=== PATIENT | female | born 1950 | race Caucasian/White ===

== ENCOUNTER 2016-03-17 13:33 | Inpatient (IN) | payer MEDICARE, OTHER ==
[~2016-03-17] VITALS: Ht 167.6 cm; Wt 74.3 kg
--- NOTE | ~2016-03-17 | INT ---
PATIENT'S NAME: AMY SULTANA [facility] AGE: 65 Y [address] 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 HISTORY OF PRESENT ILLNESS: Amy is a 65-year-old female who started her radiation therapy today. She is at a dose of 300 cGy out of 3000 cGy. We plan to treat the patient for 2 weeks, give her a short break and then bring her back for possible further treatment. The patient is using a PEG tube for all of her nutritional needs. She is unable to swallow any food. The patient has her head elevated to sleep. She states she recently had her oxygen discontinued which pleased her. The patient had an anxiety attack prior to coming over for her first treatment. Nursing staff had given her Ativan prior to her trip to the Cancer Center today. Ramy Galeano APRN, acting as Dr. Landers's scribe for the physical examination, impression, and plan. PHYSICAL EXAMINATION: VITAL SIGNS: Temperature 97.6, pulse 98, respiratory rate 18, blood pressure 117/78, oxygen saturation 95%. Pain was 2/10. Weight was 71.3 kg. Height 65 inches. LUNGS: Clear anteriorly and posteriorly. No wheezes, rales, or rhonchi. Oral cavity does not show any mycoses. Tongue protrudes in the midline. The patient has radiation portal markings on her anterior chest. No redness noted. NEUROLOGIC: The patient is alert and oriented x3. She has tremors to both hands. ABDOMEN: The patient has a PEG tube in place covered with a dressing and tape. Bowel sounds are active. No masses. A 65-year-old female with non-small cell lung cancer. We will continue with treatment. PATIENT'S NAME: AMY SULTANA [facility] AGE: 65 Y [address] ROOM: [place] [id number] LOCATION: [facility] ADMIT DATE: 03/17/2016 Oncology Report DISCHARGE DATE: FAMILY PHYSICIAN: Jolynn Vaughn MD ATTENDING PHYSICIAN: JOLANTA CHAUDHARY RAMY GALEANO APRN FOR ROSA M LANDERS MD, PHD LAD/modl /[id number] CC: MD Jolynn Carrera MD Cynthia M Lewis, MD Atam Mehdiratta, MD d: 03/24/16 1009 t: 04/08/16 1112, INTERVAL NOTE
--- NOTE | ~2016-03-17 | DS ---
PATIENT'S NAME: ALEXIS SULTANA [facility] AGE: 65 Y [address] ROOM: [address] [address] LOCATION: [facility] ADMIT DATE: 02/27/2016 Discharge Summary DISCHARGE DATE: 03/17/2016 FAMILY PHYSICIAN: Jolynn Vaughn MD ATTENDING PHYSICIAN: Herminia Pride FINAL DIAGNOSES: 1. Stage IV lung cancer status post treatment with atezolizumab. 2. Esophageal stricture. 3. Chronic respiratory failure. 4. Moderate protein-calorie malnutrition. 5. Intractable nausea and vomiting. 6. Acute on chronic back pain. 7. Hypothyroidism. 8. Chronic obstructive pulmonary disease. 9. Hypokalemia. 10. Right arm deep venous thrombosis. 11. Generalized anxiety. 12. Chronic constipation. PROCEDURES: 1. She had ad an EGD with Dr. Yuan on March 02. Right PICC line with Dr. Childs on March 03. 2. G-tube placement with Dr. Reeder on March 09, 2016. Please see the history and physical dictated by Dr. Pride for details of admission. In short, patient was admitted with intractable nausea, vomiting, and pain. LABORATORY DATA: On admission, sodium 138, got as low as 134, discharge 136; potassium on admission was 3.3, discharge 3.8, chloride on admission was 100 and on discharge 98. Bicarb on admission was 24 and on discharge 31. Alkaline phosphatase on admission was 82. AST is 31, ALT is 25. Cardiac enzymes on admission were normal. On admission, white blood cell count 7.1, most recent prior to discharge was 7. Hemoglobin on admission is 39, most prior to discharge was 11.6, platelet count on admission was 324 and on discharge 215. Procalcitonin on admission was less than 0.05. Urinalysis on admission did not show any evidence of infection. MICROBIOLOGY DATA: From the hospital, stool culture was negative. RADIOLOGIC STUDIES: X-ray of the abdomen on admission did not show any free air. It showed air containing loops of small bowel. CT scan of the head on admission did not show any significant abnormalities. Modified barium swallow on February 29, 2016, showed that there was good oral control, but there was significant narrowing at the midesophagus. MRI of the brain on March 01, 2016, did not show any acute changes. Bone scan on March 02, 2016, showed a normal bone scan without bony METS. PATIENT'S NAME: ALEXIS SULTANA [facility] AGE: 65 Y [address] ROOM: [id number] [place], [place] [address] LOCATION: [facility] ADMIT DATE: 02/27/2016 Discharge Summary DISCHARGE DATE: 03/17/2016 FAMILY PHYSICIAN: Jolynn Vaughn MD ATTENDING PHYSICIAN: Herminia Pride HOSPITAL COURSE: The patient was admitted with a diagnosis of intractable nausea, vomiting, pain, and constipation. It was known that she had stage IV lung disease. She was admitted for IV Dilaudid INSPECTOR PAWNSHOP DETAIL. She was continued on her home medications. Because of the nausea and vomiting, an NG was placed and put through low intermittent suction. She was given Mag citrate per the NG to try and stimulate a bowel movement. She continued to have significant dysphagia and a modified barium swallow was obtained which did in fact show that there was evidence of an esophageal stricture. She was seen by Dr. Luevano and given a dose of dexamethasone to see if that would help with the pain. Her electrolytes were continued to be watched and replaced as necessary. GI was consulted to see her because of the abnormality on her barium swallow. An MRI and bone scan were done to evaluate for further METS. Dr. Yuan did see her in consultation and did feel that she needed an endoscopy. That was set up for the next hospital day. The EGD did show a tight stricture. It was an extrinsic compression. Discussion was to whether she would need an esophageal stent with a PEG or G-tube placement. She continued to have significant back pain as she was not able to take anything. An attempt was made to place the PICC line but could not be placed, so Interventional Radiology did place that. Once the PICC line was placed, she did receive TPN. Palliative Care was asked to see the patient. Nutrition did help with her TPN formulation. There was a discussion with her in terms of using an immunotherapy as salvage for her, and she was contemplating that. The plan is that GI did speak with her and really she did not want to have an esophageal stent placed due to the high risk. As noted on March 07, 2016, she had significant edema in her arm. At that time, a Doppler was obtained and did show that she had the clot around the PICC line. I spoke with Dr. Son Childs who placed the PICC line, and he stated at this time, he would recommend just anticoagulation. She was placed on a heparin drip for this. The decision was made that Interventional Radiology would place a G-tube and she was continued on the heparin drip until then. It was also decided that she would start the atezolizumab therapy. She received that on March. Once the G-tube was placed, and it was safe to use, we did take her off the TPN and start tube feeds. She did have problems with significant constipation which we did work with. She did get the chemotherapy and tolerated it without any difficulty. The heparin was stopped prior to the procedure, and when it was safe to resume anticoagulation, she was started on Eliquis 5 mg twice daily. The tube feeds were started, and she did have some difficulty with nausea when they were first at goal rate. At that time, we did give her aggressive stimulation, and she did have a bowel movement. We also worked to convert her from the INSPECTOR PAWNSHOP DETAIL to a fentanyl patch with Dilaudid for the tube for breakthrough. Dr. Ronna Jeter did see her and felt that she might benefit from radiation as palliation to the stricture. She did agree to do that. Dr. Kaminski did see her, and she underwent a simulation for that on March 15, 2016. A bed did become available for her on the Transitional Care Unit, and she was PATIENT'S NAME: ALEXIS SULTANA [facility] AGE: 65 Y [address] ROOM: [address] [address] LOCATION: [facility] ADMIT DATE: 02/27/2016 Discharge Summary DISCHARGE DATE: 03/17/2016 FAMILY PHYSICIAN: Jolynn Vaughn MD ATTENDING PHYSICIAN: Herminia Pride transferred there on March 17. DISCHARGE INSTRUCTIONS: She is to get tube feeds at Jevity 1.5 at 55 mL an hour with water flushes of 150 mL every 8 hours. Weightbearing as tolerated. PT/OT and speech to see her. Her oxygen as necessary show laboratory of CBC, Chem panel, and Mag every Monday. CURRENT MEDICATIONS: 1. Prevacid slurry 30 mg per tube daily. 2. Norvasc 5 mg per tube daily. 3. Eliquis 5 mg twice daily per tube. 4. Colace 100 mg twice daily per tube. 5. Fentanyl patch, a total of 62 mcg, change every 72 hours. 6. Folic acid 1 mg per tube daily. 7. Lidoderm patches every day to her back, on in the morning and off at night. 8. Ativan 0.5 mg daily. 9. MiraLax 17 g per tube twice daily. 10. Zoloft 100 mg daily. 11. DuoNeb treatments every 6 hours as needed for shortness of breath. 12. suppository 10 mg per rectum as needed. 13. Dilaudid 2 mg per tube every 2 hours as needed for pain. Dilaudid 0.2 mg IV every 2 hours for severe pain. 14. Phenergan 25 mg IM every 6 hours as needed for nausea. 15. Atrovent inhaled every 4 hours p.r.n. shortness of breath. PROGNOSIS: Overall prognosis at discharge is poor. KONSTANTIN GIPSON MD LAW/modl /[id number] d: 03/18/16 0141 t: 05/09/16 0933, DISCHARGE SUMMARY
--- NOTE | ~2016-03-17 | DS ---
PATIENT'S NAME: ALEXIS BLOCK [facility] AGE: 66 Y [address] ROOM: [id number] [place] [address] LOCATION: [facility] ADMIT DATE: 03/17/2016 Discharge Summary DISCHARGE DATE: 05/04/2016 FAMILY PHYSICIAN: Jolynn Vaughn MD ATTENDING PHYSICIAN: Herminia Pride PRIMARY CARE PHYSICIAN: Dr. Becker. Attending physician on the day of discharge is Dr. Olea. CONSULTING PHYSICIAN: Dr. Nevarez for Oncology along with Dr. Jeter. Jody Rendon with Palliative Care also followed the patient. DISCHARGE DIAGNOSES: 1. Stage IV non-small cell lung cancer. 2. Dysphagia secondary to stage IV non-small cell lung cancer. 3. Anxiety. 4. Depression. 5. Nausea. 6. Right arm deep venous thrombosis, the patient is on long-term anticoagulation with Eliquis. 7. Chronic obstructive pulmonary disease. 8. Moderate protein calorie malnutrition. 9. Mediastinal adenopathy secondary to stage IV non-small cell lung cancer. DISCHARGE MEDICATIONS: 1. Norvasc 5 mg p.o. daily. 2. Eliquis 5 mg p.o. twice daily. 3. Fentanyl Duragesic patch 12 mcg transdermally q.72 hours. 4. Hydromorphone 2 mg p.o. q.3 hours p.r.n. pain. 5. Lidocaine 5% patch 2 patches transdermally q.h.s. to back, patch may remain in place for 12 hours. 6. Lorazepam 0.5 mg daily. 7. Reglan 10 mg p.o. q.h.s. 8. Zoloft 100 mg p.o. daily. 9. Tylenol 325 two tablets p.o. q.4 hours p.r.n. pain. 10. Dulcolax suppository 10 mg rectally p.r.n. constipation. 11. Robitussin 300 mg p.o. q.6 hours p.r.n. cough. 12. Ativan 0.5 mg q.6 hours p.r.n. nausea or anxiety. 13. Milk of magnesia 30 mL p.o. p.r.n. constipation. 14. Ondansetron 4 mg sublingually q.4 hours p.r.n. nausea and vomiting. 15. Tucks medicated pads topically p.r.n. hemorrhoid care. 16. [place] nasal spray p.r.n. dry nares. 17. Lysine drops 1 drop both eyes p.r.n. itchy eyes. PATIENT'S NAME: ALEXIS BLOCK [facility] AGE: 66 Y [address] ROOM: [place] [address] LOCATION: [facility] ADMIT DATE: 03/17/2016 Discharge Summary DISCHARGE DATE: 05/04/2016 FAMILY PHYSICIAN: Jolynn Vaughn MD ATTENDING PHYSICIAN: Herminia Pride 18. Famotidine 20 mg p.o. b.i.d. 19. Jevity 1.5, 95 mL/hour x14 hours a day with 150 mL H2O flushes q.8 hours. HOSPITAL COURSE: Mrs. Block was transferred to the TCU unit for continued management while undergoing radiation therapy along with chemotherapy for her stage IV lung cancer related to mediastinal adenopathy which in turn caused her to have dysphagia secondary to esophageal stricture. She received treatment with atezolizumab and also received radiation treatments. The patient was transferred on 03/17/2016 and was taking in tube feedings to support the nutritional status. The patient has a G-tube placement. Palliative followed during her stay. The patient had difficulties with anxiety throughout her hospitalization. The Ativan seemed to be helpful. The patient also had difficulties with intermittent nausea. Zofran sublingually was used to try to help manage this. Dr. Nevarez continued to follow up the patient also on TCU. Metoclopramide was also trialed to help with the nausea. This seemed to wax and wane throughout her hospitalization. The patient did not struggle with pain being much of an issue, seen well-controlled with the fentanyl and lidocaine patches. The patient did have some dysfunction of the PEG tube, and this was actually on replaced on 04/04/2016. The patient continued to report to her radiation treatments. The PEG tube feedings were adjusted. It felt that the patient may tolerate bolus feeds which were trialed. Care management worked with Ms. Block and family concerning plans for discharge. Ultimately, the bolus feeds were stopped and changed to tube feedings at a continuous rate. The patient did undergo a modified barium study on 04/20/2016. At that point, they felt she could take pureed foods and the liquids for pleasure in conjunction with the tube feedings, but no mixed textured food. The patient did have a significant amount of anxiety with eating. Ultimately, the Jevity was given in over 14 hours. The patient did have a restaging CT scan. This was done on 04/19/2016. There was mild improvement in the mediastinal adenopathy, and the left upper lobe mass seemed somewhat increased since the prior study. Ultimately, the patient decided to forgo the last week of her radiation treatment due to nonspecific complaint of not feeling well. Palliative worked with Martina castillo along with our services to coordinate a discharge plan on 05/04/2016 to [facility] and to enroll the help of hospice services. The patient voices understanding of the plan. Coordination of cares were made between multidisciplinary services. Dr. Becker will be acting as her primary care physician. He did come up to visit with the patient the night prior to discharge. The patient will be discharged to [facility] on 05/04/2016 with hospice services to enroll. She has an appointment to follow up with Dr. Jeter on , May 19, 2016, at 12:20. We will have her see PATIENT'S NAME: ALEXIS BLOCK [facility] AGE: 66 Y [address] ROOM: [place] [address] LOCATION: [facility] ADMIT DATE: 03/17/2016 Discharge Summary DISCHARGE DATE: 05/04/2016 FAMILY PHYSICIAN: Jolynn Vaughn MD ATTENDING PHYSICIAN: Herminia Pride Dr. following her appointment with Dr. Jeter for continued management. Thank you for allowing us to help care for this patient. Discharge of this patient took greater than 35 minutes, 50% of it encompassing coordination of her care, adjustments of her medications, and in making followup appointments. Also educating the patient in finalizing this discharge plan. ALFONSO WILSON PA-C FOR MD GUS VERGARA/modl :51:29 /[id number] CC: MD Ronna Alvarez MD d: 05/04/16 2254 t: 05/31/16 0927, DISCHARGE SUMMARY
--- NOTE | ~2016-03-17 | DS ---
PATIENT'S NAME: ALEXIS SULTANA [facility] AGE: 65 Y [address] ROOM: [address] [address] LOCATION: [facility] ADMIT DATE: 02/27/2016 Discharge Summary DISCHARGE DATE: 03/17/2016 FAMILY PHYSICIAN: Jolynn Vaughn MD ATTENDING PHYSICIAN: Herminia Pride FINAL DIAGNOSES: 1. Stage IV lung cancer status post treatment with atezolizumab. 2. Esophageal stricture. 3. Chronic respiratory failure. 4. Moderate protein-calorie malnutrition. 5. Intractable nausea and vomiting. 6. Acute on chronic back pain. 7. Hypothyroidism. 8. Chronic obstructive pulmonary disease. 9. Hypokalemia. 10. Right arm deep venous thrombosis. 11. Generalized anxiety. 12. Chronic constipation. PROCEDURES: 1. She had ad an EGD with Dr. Yuan on March 02. Right PICC line with Dr. Childs on March 03. 2. G-tube placement with Dr. Reeder on March 09, 2016. Please see the history and physical dictated by Dr. Pride for details of admission. In short, patient was admitted with intractable nausea, vomiting, and pain. LABORATORY DATA: On admission, sodium 138, got as low as 134, discharge 136; potassium on admission was 3.3, discharge 3.8, chloride on admission was 100 and on discharge 98. Bicarb on admission was 24 and on discharge 31. Alkaline phosphatase on admission was 82. AST is 31, ALT is 25. Cardiac enzymes on admission were normal. On admission, white blood cell count 7.1, most recent prior to discharge was 7. Hemoglobin on admission is 39, most prior to discharge was 11.6, platelet count on admission was 324 and on discharge 215. Procalcitonin on admission was less than 0.05. Urinalysis on admission did not show any evidence of infection. MICROBIOLOGY DATA: From the hospital, stool culture was negative. RADIOLOGIC STUDIES: X-ray of the abdomen on admission did not show any free air. It showed air containing loops of small bowel. CT scan of the head on admission did not show any significant abnormalities. Modified barium swallow on February 29, 2016, showed that there was good oral control, but there was significant narrowing at the midesophagus. MRI of the brain on March 01, 2016, did not show any acute changes. Bone scan on March 02, 2016, showed a normal bone scan without bony METS. PATIENT'S NAME: ALEXIS SULTANA [facility] AGE: 65 Y [address] ROOM: [address] [place], [place] [address] LOCATION: [facility] ADMIT DATE: 02/27/2016 Discharge Summary DISCHARGE DATE: 03/17/2016 FAMILY PHYSICIAN: Jolynn Vaughn MD ATTENDING PHYSICIAN: Herminia Pride HOSPITAL COURSE: The patient was admitted with a diagnosis of intractable nausea, vomiting, pain, and constipation. It was known that she had stage IV lung disease. She was admitted for IV Dilaudid BOND BROKER. She was continued on her home medications. Because of the nausea and vomiting, an NG was placed and put through low intermittent suction. She was given Mag citrate per the NG to try and stimulate a bowel movement. She continued to have significant dysphagia and a modified barium swallow was obtained which did in fact show that there was evidence of an esophageal stricture. She was seen by Dr. Luevano and given a dose of dexamethasone to see if that would help with the pain. Her electrolytes were continued to be watched and replaced as necessary. GI was consulted to see her because of the abnormality on her barium swallow. An MRI and bone scan were done to evaluate for further METS. Dr. Yuan did see her in consultation and did feel that she needed an endoscopy. That was set up for the next hospital day. The EGD did show a tight stricture. It was an extrinsic compression. Discussion was to whether she would need an esophageal stent with a PEG or G-tube placement. She continued to have significant back pain as she was not able to take anything. An attempt was made to place the PICC line but could not be placed, so Interventional Radiology did place that. Once the PICC line was placed, she did receive TPN. Palliative Care was asked to see the patient. Nutrition did help with her TPN formulation. There was a discussion with her in terms of using an immunotherapy as salvage for her, and she was contemplating that. The plan is that GI did speak with her and really she did not want to have an esophageal stent placed due to the high risk. As noted on March 07, 2016, she had significant edema in her arm. At that time, a Doppler was obtained and did show that she had the clot around the PICC line. I spoke with Dr. Son Childs who placed the PICC line, and he stated at this time, he would recommend just anticoagulation. She was placed on a heparin drip for this. The decision was made that Interventional Radiology would place a G-tube and she was continued on the heparin drip until then. It was also decided that she would start the atezolizumab therapy. She received that on March. Once the G-tube was placed, and it was safe to use, we did take her off the TPN and start tube feeds. She did have problems with significant constipation which we did work with. She did get the chemotherapy and tolerated it without any difficulty. The heparin was stopped prior to the procedure, and when it was safe to resume anticoagulation, she was started on Eliquis 5 mg twice daily. The tube feeds were started, and she did have some difficulty with nausea when they were first at goal rate. At that time, we did give her aggressive stimulation, and she did have a bowel movement. We also worked to convert her from the BOND BROKER to a fentanyl patch with Dilaudid for the tube for breakthrough. Dr. Ronna Jeter did see her and felt that she might benefit from radiation as palliation to the stricture. She did agree to do that. Dr. Kaminski did see her, and she underwent a simulation for that on March 15, 2016. A bed did become available for her on the Transitional Care Unit, and she was PATIENT'S NAME: ALEXIS SULTANA [facility] AGE: 65 Y [address] ROOM: [address] [address] LOCATION: [facility] ADMIT DATE: 02/27/2016 Discharge Summary DISCHARGE DATE: 03/17/2016 FAMILY PHYSICIAN: Jolynn Vaughn MD ATTENDING PHYSICIAN: Herminia Pride transferred there on March 17. DISCHARGE INSTRUCTIONS: She is to get tube feeds at Jevity 1.5 at 55 mL an hour with water flushes of 150 mL every 8 hours. Weightbearing as tolerated. PT/OT and speech to see her. Her oxygen as necessary show laboratory of CBC, Chem panel, and Mag every Monday. CURRENT MEDICATIONS: 1. Prevacid slurry 30 mg per tube daily. 2. Norvasc 5 mg per tube daily. 3. Eliquis 5 mg twice daily per tube. 4. Colace 100 mg twice daily per tube. 5. Fentanyl patch, a total of 62 mcg, change every 72 hours. 6. Folic acid 1 mg per tube daily. 7. Lidoderm patches every day to her back, on in the morning and off at night. 8. Ativan 0.5 mg daily. 9. MiraLax 17 g per tube twice daily. 10. Zoloft 100 mg daily. 11. DuoNeb treatments every 6 hours as needed for shortness of breath. 12. suppository 10 mg per rectum as needed. 13. Dilaudid 2 mg per tube every 2 hours as needed for pain. Dilaudid 0.2 mg IV every 2 hours for severe pain. 14. Phenergan 25 mg IM every 6 hours as needed for nausea. 15. Atrovent inhaled every 4 hours p.r.n. shortness of breath. PROGNOSIS: Overall prognosis at discharge is poor. KONSTANTIN GIPSON MD LAW/modl /[id number] d: 03/18/16 0141 t: 05/09/16 0935, DISCHARGE SUMMARY
[~2016-03-17 13:33] MED LIST: ASPIRIN LO-DOSE81 MG PO; BENADRYL12.5 MG/5 PO; CENTRUM SILVER1 TAB PO; CITROMA296 ML PO; CLARITIN10 M3 PO; COLACE100 MG PO; DECADRON4 MG PO; DILAUDID 2MG(HYD2 MG PO; FOLIC ACID1 MG PO; LIPITOR40 MG PO; MIRALAX17 GM PO; MUCINEX DM ER1 EAC1 PO; NORVASC5 MG PO; PEPCID20 MG PO; PROTONIX40 MG PO; PROVENTIL OR V6.7 GM INH; STOOL SOFTENER240 MG PO; TYLENOL325 MG PO; XARELTO20 MG PO; ZOFRAN4 MG SL; ZOLOFT100 MG PO; ZOLOFT50 MG PO
[2016-03-21 05:33] LABS: ALBUMIN 2.4 gm/dL (3.5-5.0); ALK PHOS 101 IU/L (33-138); ALT 36 IU/L (12-78); AST 43 IU/L (10-40); BLOOD UREA NITROGEN 10 mg/dL (6-24); CALCIUM 8.7 mg/dL (8.5-10.5); CHLORIDE 98 mMol/L (96-110); CO2 29 mMol/L (22-32); CREATININE 0.5 mg/dL (0.5-1.1); ESTIMATED GFR (MDRD EQUATION) > 60; MAGNESIUM 1.9 mg/dL (1.3-2.6); SODIUM 136 mMol/L (135-145); TOTAL PROTEIN 6.8 g/dL (6.0-8.4)
[2016-03-21 05:34] LABS: TOTAL BILIRUBIN 0.2 mg/dL (0.0-1.5)
[2016-03-21 05:36] LABS: BASOPHIL # 0.1 K/uL (0.0-0.2); BASOPHIL % 0.7 %; EOSINOPHIL # 0.1 K/uL (0.0-0.5); EOSINOPHIL % 1.7 %; HEMATOCRIT 38.9 % (33.0-46.0); HEMOGLOBIN 12.8 g/dL (10.0-15.0); IMMATURE GRANULOCYTE % 0.3 %; LYMPHOCYTE # 0.7 K/uL (0.8-4.0); MCH 34.7 pg (27.0-34.0); MCHC 32.9 gm/dL (32.0-36.5); MCV 105.4 fl (83.0-98.0); MONOCYTE # 0.8 K/uL (0.0-1.0); MONOCYTE % 12.2 %; MPV 10.7 fl (9.4-12.4); NEUTROPHIL # (ANC) 5.2 K/uL (1.8-7.8); NEUTROPHIL % 75.1 %; NRBC % 0 /100WBC (0-0.00); PLATELET COUNT 255 K/uL (150-450); RBC 3.69 M/uL (3.50-5.50); RDW-CV 13.8 % (11.9-14.6); WBC 6.9 K/uL (4.0-11.0)
[2016-03-30 05:34] LABS: ALBUMIN 2.4 gm/dL (3.5-5.0); ALK PHOS 101 IU/L (33-138); ALT 37 IU/L (12-78); ANION GAP 11.8 (10.0-19.0); AST 28 IU/L (10-40); BLOOD UREA NITROGEN 13 mg/dL (6-24); CALCIUM 8.5 mg/dL (8.5-10.5); CHLORIDE 97 mMol/L (96-110); CO2 30 mMol/L (22-32); CREATININE 0.5 mg/dL (0.5-1.1); ESTIMATED GFR (MDRD EQUATION) > 60; POTASSIUM 3.8 mMol/L (3.7-5.1); SODIUM 135 mMol/L (135-145); TOTAL BILIRUBIN 0.3 mg/dL (0.0-1.5); TOTAL PROTEIN 6.5 g/dL (6.0-8.4)
[2016-03-30 06:08] LABS: HEMATOCRIT 39.5 % (33.0-46.0); MCH 34.4 pg (27.0-34.0); MCHC 32.9 gm/dL (32.0-36.5); MCV 104.5 fl (83.0-98.0); MPV 11.8 fl (9.4-12.4); PLATELET COUNT 231 K/uL (150-450); RBC 3.78 M/uL (3.50-5.50); RDW-CV 13.7 % (11.9-14.6); WBC 5.1 K/uL (4.0-11.0)
[2016-03-30 07:02] LABS: ABSOLUTE NEUTROPHIL CT (ANC) 4.2 K/uL (1.8-7.8); LYMPHOCYTE # 0.3 K/uL (0.8-4.0); LYMPHOCYTE % 6 %; MONOCYTE # 0.6 K/uL (0.0-1.0); SEGMENTED NEUTROPHIL # 4.2 K/uL (1.8-7.8); SEGMENTED NEUTROPHIL % 82 %
[2016-03-31 05:04] LABS: HEMATOCRIT 40.1 % (33.0-46.0); HEMOGLOBIN 13.2 g/dL (10.0-15.0); MCH 34.2 pg (27.0-34.0); MCHC 32.9 gm/dL (32.0-36.5); MCV 103.9 fl (83.0-98.0); MPV 10.9 fl (9.4-12.4); PLATELET COUNT 216 K/uL (150-450); RBC 3.86 M/uL (3.50-5.50); RDW-CV 13.7 % (11.9-14.6); WBC 5.8 K/uL (4.0-11.0)
[2016-03-31 05:39] LABS: ABSOLUTE NEUTROPHIL CT (ANC) 5.2 K/uL (1.8-7.8); BANDED NEUTROPHIL # 0.3 K/uL (0.0-0.1); BANDED NEUTROPHILS % 6 %; LYMPHOCYTE # 0.4 K/uL (0.8-4.0); LYMPHOCYTE % 7 %; MONOCYTE # 0.2 K/uL (0.0-1.0); SEGMENTED NEUTROPHIL # 4.8 K/uL (1.8-7.8); SEGMENTED NEUTROPHIL % 83 %
[2016-04-05 10:04] LABS: ANION GAP 14.5 (10.0-19.0); BLOOD UREA NITROGEN 11 mg/dL (6-24); CALCIUM 8.8 mg/dL (8.5-10.5); CHLORIDE 94 mMol/L (96-110); CO2 28 mMol/L (22-32); CREATININE 0.5 mg/dL (0.5-1.1); ESTIMATED GFR (MDRD EQUATION) > 60; POTASSIUM 3.5 mMol/L (3.7-5.1); SODIUM 133 mMol/L (135-145)
[2016-04-11 05:39] LABS: ALBUMIN 2.7 gm/dL (3.5-5.0); ALK PHOS 103 IU/L (33-138); ALT 32 IU/L (12-78); BLOOD UREA NITROGEN 11 mg/dL (6-24); CALCIUM 8.9 mg/dL (8.5-10.5); CHLORIDE 96 mMol/L (96-110); CO2 28 mMol/L (22-32); CREATININE 0.5 mg/dL (0.5-1.1); ESTIMATED GFR (MDRD EQUATION) > 60; SODIUM 133 mMol/L (135-145); TOTAL PROTEIN 7.3 g/dL (6.0-8.4)
[2016-04-11 05:40] LABS: ANION GAP 13.2 (10.0-19.0); AST 32 IU/L (10-40); MAGNESIUM 1.9 mg/dL (1.3-2.6); POTASSIUM 4.2 mMol/L (3.7-5.1); TOTAL BILIRUBIN 0.2 mg/dL (0.0-1.5)
[2016-04-11 05:45] LABS: HEMATOCRIT 43.3 % (33.0-46.0); HEMOGLOBIN 14.5 g/dL (10.0-15.0); MCHC 33.5 gm/dL (32.0-36.5); MCV 101.6 fl (83.0-98.0); MPV 10.5 fl (9.4-12.4); PLATELET COUNT 257 K/uL (150-450); RBC 4.26 M/uL (3.50-5.50); RDW-CV 13.8 % (11.9-14.6); WBC 6.2 K/uL (4.0-11.0)
[2016-04-11 06:09] LABS: ABSOLUTE NEUTROPHIL CT (ANC) 5.5 K/uL (1.8-7.8); BANDED NEUTROPHIL # 0.4 K/uL (0.0-0.1); BANDED NEUTROPHILS % 7 %; LYMPHOCYTE # 0.4 K/uL (0.8-4.0); LYMPHOCYTE % 7 %; MONOCYTE # 0.2 K/uL (0.0-1.0); SEGMENTED NEUTROPHIL # 5.1 K/uL (1.8-7.8); SEGMENTED NEUTROPHIL % 82 %
[2016-04-13 05:35] LABS: ANION GAP 14.1 (10.0-19.0); BLOOD UREA NITROGEN 12 mg/dL (6-24); CALCIUM 8.7 mg/dL (8.5-10.5); CHLORIDE 95 mMol/L (96-110); CO2 29 mMol/L (22-32); CREATININE 0.5 mg/dL (0.5-1.1); ESTIMATED GFR (MDRD EQUATION) > 60; POTASSIUM 4.1 mMol/L (3.7-5.1); SODIUM 134 mMol/L (135-145)
[2016-04-18 05:26] LABS: HEMATOCRIT 40.6 % (33.0-46.0); HEMOGLOBIN 13.7 g/dL (10.0-15.0); MCH 34.2 pg (27.0-34.0); MCHC 33.7 gm/dL (32.0-36.5); MCV 101.2 fl (83.0-98.0); MPV 10.4 fl (9.4-12.4); PLATELET COUNT 238 K/uL (150-450); RBC 4.01 M/uL (3.50-5.50); RDW-CV 13.8 % (11.9-14.6); WBC 6.8 K/uL (4.0-11.0)
[2016-04-18 05:36] LABS: ALBUMIN 2.5 gm/dL (3.5-5.0); ALK PHOS 89 IU/L (33-138); ALT 29 IU/L (12-78); ANION GAP 10.7 (10.0-19.0); AST 31 IU/L (10-40); BLOOD UREA NITROGEN 11 mg/dL (6-24); CALCIUM 8.6 mg/dL (8.5-10.5); CHLORIDE 97 mMol/L (96-110); CO2 30 mMol/L (22-32); CREATININE 0.5 mg/dL (0.5-1.1); ESTIMATED GFR (MDRD EQUATION) > 60; MAGNESIUM 1.8 mg/dL (1.3-2.6); POTASSIUM 3.7 mMol/L (3.7-5.1); SODIUM 134 mMol/L (135-145); TOTAL BILIRUBIN 0.2 mg/dL (0.0-1.5); TOTAL PROTEIN 6.7 g/dL (6.0-8.4)
[2016-04-18 06:08] LABS: ABSOLUTE NEUTROPHIL CT (ANC) 5.8 K/uL (1.8-7.8); BANDED NEUTROPHIL # 0.3 K/uL (0.0-0.1); BANDED NEUTROPHILS % 4 %; LYMPHOCYTE # 0.3 K/uL (0.8-4.0); LYMPHOCYTE % 4 %; MONOCYTE # 0.7 K/uL (0.0-1.0); SEGMENTED NEUTROPHIL # 5.5 K/uL (1.8-7.8); SEGMENTED NEUTROPHIL % 81 %
[2016-04-25 05:58] LABS: ALBUMIN 2.6 gm/dL (3.5-5.0); ALK PHOS 90 IU/L (33-138); ALT 30 IU/L (12-78); ANION GAP 12.3 (10.0-19.0); AST 28 IU/L (10-40); BLOOD UREA NITROGEN 13 mg/dL (6-24); CALCIUM 8.3 mg/dL (8.5-10.5); CHLORIDE 96 mMol/L (96-110); CO2 31 mMol/L (22-32); CREATININE 0.5 mg/dL (0.5-1.1); ESTIMATED GFR (MDRD EQUATION) > 60; MAGNESIUM 1.7 mg/dL (1.3-2.6); POTASSIUM 4.3 mMol/L (3.7-5.1); SODIUM 135 mMol/L (135-145); TOTAL PROTEIN 6.7 g/dL (6.0-8.4)
[2016-04-25 05:59] LABS: TOTAL BILIRUBIN 0.3 mg/dL (0.0-1.5)
[2016-04-25 06:04] LABS: HEMATOCRIT 40.9 % (33.0-46.0); HEMOGLOBIN 13.5 g/dL (10.0-15.0); MCH 33.8 pg (27.0-34.0); MCV 102.3 fl (83.0-98.0); MPV 11.1 fl (9.4-12.4); PLATELET COUNT 238 K/uL (150-450); RDW-CV 14.1 % (11.9-14.6); WBC 5.9 K/uL (4.0-11.0)
[2016-04-25 07:19] LABS: ABSOLUTE NEUTROPHIL CT (ANC) 4.4 K/uL (1.8-7.8); LYMPHOCYTE # 0.3 K/uL (0.8-4.0); LYMPHOCYTE % 5 %; MONOCYTE # 1.1 K/uL (0.0-1.0); SEGMENTED NEUTROPHIL # 4.4 K/uL (1.8-7.8); SEGMENTED NEUTROPHIL % 75 %
[2016-05-02 07:43] LABS: ALBUMIN 2.7 gm/dL (3.5-5.0); ALK PHOS 93 IU/L (33-138); ALT 26 IU/L (12-78); ANION GAP 11.1 (10.0-19.0); AST 28 IU/L (10-40); BLOOD UREA NITROGEN 13 mg/dL (6-24); CALCIUM 8.7 mg/dL (8.5-10.5); CHLORIDE 97 mMol/L (96-110); CO2 29 mMol/L (22-32); CREATININE 0.5 mg/dL (0.5-1.1); ESTIMATED GFR (MDRD EQUATION) > 60; MAGNESIUM 1.7 mg/dL (1.3-2.6); POTASSIUM 4.1 mMol/L (3.7-5.1); SODIUM 133 mMol/L (135-145)
[2016-05-02 07:44] LABS: TOTAL BILIRUBIN 0.2 mg/dL (0.0-1.5)
[2016-05-02 08:01] LABS: HEMATOCRIT 42.1 % (33.0-46.0); HEMOGLOBIN 14.3 g/dL (10.0-15.0); MCV 100.2 fl (83.0-98.0); MPV 11.2 fl (9.4-12.4); PLATELET COUNT 228 K/uL (150-450); RDW-CV 14.5 % (11.9-14.6); WBC 7.1 K/uL (4.0-11.0)
[2016-05-02 09:38] LABS: ABSOLUTE NEUTROPHIL CT (ANC) 6.1 K/uL (1.8-7.8); BANDED NEUTROPHIL # 0.3 K/uL (0.0-0.1); BANDED NEUTROPHILS % 4 %; SEGMENTED NEUTROPHIL # 5.8 K/uL (1.8-7.8); SEGMENTED NEUTROPHIL % 82 %
[2016-05-02 09:39] LABS: LYMPHOCYTE # 0.4 K/uL (0.8-4.0); LYMPHOCYTE % 5 %; MONOCYTE # 0.6 K/uL (0.0-1.0)
[2016-05-04] MEDS ORDERED: ELIQUIS5 MG PO (10:27)
[2016-05-04] MEDS ORDERED: DURAGESIC 50MC50 MCG TOP (10:28)
[2016-05-04] MEDS ORDERED: DURAGESIC1 EACH TRANS (10:36)
[2016-05-04] MEDS ORDERED: LIDODERM1 EACH TRANS (10:39)
[2016-05-04] MEDS ORDERED: ATIVAN 0.5MG0.5 MG PO ×2 (10:40→10:45)
[2016-05-04] MEDS ORDERED: DULCOLAX10 MG R (10:41)
[2016-05-04] MEDS ORDERED: REGLAN10 MG PO (10:41)
[2016-05-04] MEDS ORDERED: ROBITUSSIN100 MG/5 M PO (10:42)
[2016-05-04] MEDS ORDERED: HYDROCORT 1% CR30 GM TOP (10:45)
[2016-05-04] MEDS ORDERED: MILK OF MA400 MG/5 M PO (10:46)
[2016-05-04] MEDS ORDERED: TUCKS PADS TOP (10:48)
[2016-05-04] MEDS ORDERED: OCEAN NASAL) (A44 ML NOSE (10:50)
[2016-05-04] MEDS ORDERED: VISINE DPS)(GEN15 ML OPHTH (10:52)
[2016-05-04] MEDS ORDERED: PEPCID20 MG PO (10:53)
[2016-05-04] MEDS ORDERED: SENNA8.6 MG PO (10:54)
== END 2016-05-04 13:38 | disposition disaster alternative care site (69) | DRG 181 ==
LOC: GSNF 13:33
PROVIDERS: Internal Medicine; Internal Medicine Hematology & Oncology; Nurse Practitioner Family; ADMIT Internal Medicine
PROC: F08Z4ZZ Home Management Treatment (ICD-10-PCS; principal; 2016-03-17)
PROC: F07Z9ZZ Gait Training/Functional Ambulation Treatment (ICD-10-PCS; principal; 2016-03-17)
PROC: F06Z6ZZ Communicative/Cognitive Integration Skills Treatment (ICD-10-PCS; principal; 2016-03-17)
PROC: DW022ZZ Beam Radiation of Chest using Photons >10 MeV (ICD-10-PCS; 2016-03-23)
PROC: 3E03305 Introduction of Other Antineoplastic into Peripheral Vein, Percutaneous Approach (ICD-10-PCS; 2016-03-31)
DX: C34.12 Malignant neoplasm of upper lobe, left bronchus or lung (principal); J96.11 Chronic respiratory failure with hypoxia; E44.0 Moderate protein-calorie malnutrition; I82.621 Acute embolism and thrombosis of deep veins of right upper extremity; K22.2 Esophageal obstruction; C78.2 Secondary malignant neoplasm of pleura; E87.1 Hypo-osmolality and hyponatremia; E03.9 Hypothyroidism, unspecified; J44.9 Chronic obstructive pulmonary disease, unspecified; F41.1 Generalized anxiety disorder; K59.00 Constipation, unspecified; R13.10 Dysphagia, unspecified; F32.9 Major depressive disorder, single episode, unspecified; Z93.1 Gastrostomy status; M54.9 Dorsalgia, unspecified; Z66 Do not resuscitate; R11.0 Nausea; Z92.21 Personal history of antineoplastic chemotherapy
CPT/HCPCS: C1769; C1887; C1894; J1170; J2405; J2550; J2997; Q0164; Q9967

== ENCOUNTER 2016-07-23 05:06 | Emergency (ER) | payer MEDICARE, OTHER ==
--- NOTE | ~2016-07-23 | ENPV ---
Vascular Lower Extremities DVT Study Procedure Demographics Patient Name ALEXIS SULTANA Date of Study 07/23/2016 Patient Number [id number] Gender Female Date of 1950 Age 66 Visit Number [id number] Height Accession Number [id number] Weight Room Number BSA BMI Referring Aneudy Engel MD Interpreting Kamala Arrieta MD Physician Physician Physician Ordering Physician Aneudy Engel MD [employer] Former Katheryn David RDCS, RVT Conclusions Summary TECHNIQUE: The veins of the lower extremity on the right and left were evaluated from the groin to the ankle using walters scale, compression, and augmentation. Venous hemodynamics were evaluated with color flow and spectral Doppler. FINDINGS: Acute thrombosis extensive bilateral, from the common femoral vein level down through the thigh to the lower leg. The veins are noncompressible. See table below. IMPRESSION: ACUTE EXTENSIVE BILATERAL LOWER EXTREMITY DVT. Procedure Type of Study: Veins:Lower Extremities DVT Study, Lower Extremity Right. Appropriate Use Criteria:9 Patient Status:STAT. Study Location:ER. Technical Quality:Adequate visualization. Risk Factors - The patient has cancer. Velocities are measured in cm/s ; Diameters are measured in cm Right Lower Extremities DVT Study Measurements Right 2D and Doppler Measurements +---------+ + + + +------+--------+ !Location !Visualized!Compressibility!Thrombosis!Signal !Reflux!Reflux ! ! ! ! ! ! ! !(sec) ! +---------+ + + + +------+--------+ !GSV Thigh!Yes !No !Acute !Diminished! ! ! +---------+ + + + +------+--------+ !Common !Yes !No !Acute !Absent ! ! ! !Femoral ! ! ! ! ! ! ! +---------+ + + + +------+--------+ !Prox !Yes !No !Acute !Continuous! ! ! !Femoral ! ! ! ! ! ! ! +---------+ + + + +------+--------+ !Mid !Yes !No !Acute !Absent ! ! ! !Femoral ! ! ! ! ! ! ! +---------+ + + + +------+--------+ !Dist !Yes !No !Acute !Diminished! ! ! !Femoral ! ! ! ! ! ! ! +---------+ + + + +------+--------+ !Popliteal!Yes !No !Acute !Continuous! ! ! +---------+ + + + +------+--------+ !Gastroc ! !No !Acute !Absent ! ! ! +---------+ + + + +------+--------+ !PTV ! !No !Acute !Absent ! ! ! +---------+ + + + +------+--------+ !Peroneal ! !No !Acute !Absent ! ! ! +---------+ + + + +------+--------+ Left Lower Extremities DVT Study Measurements Left 2D and Doppler Measurements +---------+ + + + +------+--------+ !Location !Visualized!Compressibility!Thrombosis!Signal !Reflux!Reflux ! ! ! ! ! ! ! !(sec) ! +---------+ + + + +------+--------+ !GSV Thigh!Yes !No !None !Continuous! ! ! +---------+ + + + +------+--------+ !Common !Yes !No !Acute !Continuous! ! ! !Femoral ! ! ! ! ! ! ! +---------+ + + + +------+--------+ !Prox !Yes !No !Acute !Absent ! ! ! !Femoral ! ! ! ! ! ! ! +---------+ + + + +------+--------+ !Mid !Yes !No !Acute !Absent ! ! ! !Femoral ! ! ! ! ! ! ! +---------+ + + + +------+--------+ !Dist !Yes !No !Acute !Absent ! ! ! !Femoral ! ! ! ! ! ! ! +---------+ + + + +------+--------+ !Popliteal!Yes !No !Acute !Absent ! ! ! +---------+ + + + +------+--------+ !Gastroc !Yes !No !Acute ! ! ! ! +---------+ + + + +------+--------+ !PTV !Yes !No !Acute ! ! ! ! +---------+ + + + +------+--------+ !Peroneal !Yes !No !Acute ! ! ! ! +---------+ + + + +------+--------+ Impressions Right Impression DVT from CFV to calf Left Impression DVT form CFV to calf. Signature dtt: dtd: 07/23/16 0604 Physician Self Edit
--- NOTE | ~2016-07-23 | ER ---
PATIENT'S NAME: ALEXIS BLOCK [facility] AGE: 66 Y [address] ROOM: [place] [address] LOCATION: ED ADMIT DATE: 07/23/2016 ER/Outpatient Report DISCHARGE DATE: 07/23/2016 FAMILY PHYSICIAN: Jolynn Vaughn MD ATTENDING PHYSICIAN: Toro Amado CHIEF COMPLAINT: Right leg pain and cough. HISTORY OF PRESENT ILLNESS: Ms. Block arrives by ambulance. She states she has had several weeks of pain in her right leg. The swelling and pain got significantly worse over the last 12 hours. She tried to get out of bed this morning and the pain was significantly worse. She then called the ambulance. She has a history of active lung cancer and has received treatment, but is currently on hospice. She is not in remission. She has a history of blood clots which sound more like a stroke rather than DVT/PE associated with the prior procedure; however, she states she is not on any blood thinners. She does have some shortness of breath and cough, which are worse but sound a little more chronic. She denies any other issues. She has not taken anything to make this better. PAST MEDICAL HISTORY: Documented on the record and reviewed by me. SOCIAL HISTORY: Documented on the record and reviewed by me. MEDICATIONS: Documented on the record and reviewed by me. ALLERGIES: DOCUMENTED ON THE RECORD AND REVIEWED BY ME. REVIEW OF SYSTEMS: All systems reviewed and negative except as noted in the HPI. PHYSICAL EXAMINATION: VITAL SIGNS: As documented on the nursing record. GENERAL: Age appropriate female, in no obvious pain or distress. NEURO: The patient is awake and alert. GCS appears to be 15. No focal deficits. No asymmetry. No confusion. HEENT: Normocephalic, atraumatic. Eyes are PERRL. Oropharynx is clear. NECK: Supple. Trachea is midline. CHEST: Heart is tachycardic with no murmurs. LUNGS: Grossly clear to auscultation bilaterally. PATIENT'S NAME: ALEXIS BLOCK [facility] AGE: 66 Y [address] ROOM: [place] [address] LOCATION: ED ADMIT DATE: 07/23/2016 ER/Outpatient Report DISCHARGE DATE: 07/23/2016 FAMILY PHYSICIAN: Jolynn Vaughn MD ATTENDING PHYSICIAN: Toro Amado ABDOMEN: Soft, nontender, and nondistended. No rebound or guarding. BACK: Grossly normal to inspection and palpation. EXTREMITIES: Bilateral upper and left lower grossly unremarkable. The right lower extremity is edematous throughout. It is not firm. It is slightly cool. It is minimally tender to palpation. There is poor delineation and demarcation. The DP and PT pulses are symmetric. The patient has active symmetric strength limited only by pain. SKIN: Otherwise warm, dry, and intact. LABORATORY DATA: Labs and x-rays are pending. IMPRESSION: Likely deep venous thrombosis/pulmonary embolism. EMERGENCY DEPARTMENT COURSE: The patient was seen and evaluated. She requires no interventions at this time. DVT/PE workup was initiated. Multiple labs are pending. Handoff was given to Dr. Pak at 0600 hours. PLAN: To followup labs, DVT, ultrasound, likely obtain imaging for possible PE versus empiric treatment and disposition accordingly. All questions were answered to the best of my ability prior to transition of care. Please see Dr. Pak's dictation for completion of encounter. MD GINO ROBLES/carlos enriquel /[id number] d: 07/23/16 1234 t: 07/27/16 1001, OUTPATIENT REPORT
--- NOTE | ~2016-07-23 | ER ---
PATIENT'S NAME: ALEXIS SULTANA [facility] AGE: 66 Y [address] ROOM: [place] [address] LOCATION: [facility] ADMIT DATE: 07/23/2016 ER/Outpatient Report DISCHARGE DATE: 07/23/2016 FAMILY PHYSICIAN: Jolynn Vaughn MD ATTENDING PHYSICIAN: Toro Amado ADDENDUM: This is an addendum to Dr. Amado's dictation. Please see his dictation for Chief Complaint, History of Present Illness, Past Medical History, Past Surgical History, Social History, Allergies, Medications, Review of Systems as well as Physical Examination. The patient was seen and evaluated by myself, after transfer of care has been made with Dr. Amado. The patient's right lower extremity is slightly discolored compared to the left. There is swelling noted. The patient continues to have a DP and PT pulse noted. I was asked to follow up on laboratory analysis and imaging. The patient's CBC is remarkable for a white blood cell count of 14.4, lactate is 2.8. Coags are normal. Troponin is less than 0.04. CRP is 10. CMP is unremarkable except for a potassium of 3.6, and AST of 49. D-dimer is greater than 35. Procalcitonin is 0.06. Previous Doppler of the bilateral lower extremities was obtained. I have discussed results with the venous Doppler instrument technician apprentice. There was evidence of blood clots bilaterally with extensive clot burden. IMPRESSION: 1. Phlegmasia cerulea dolens. 2. Lung cancer, poorly differentiated, stage IV. 3. On palliative care hospice. 4. Initial visit. EMERGENCY DEPARTMENT COURSE: The patient was brought back to the examination room. Seen and evaluated by Dr. Amado initially. Her transfer of care was made to myself at shift change. I did see and evaluate the patient as well. I have discussed the results of the testing with both the patient and her friend Tessa, who is a nurse here in this facility. I have discussed different potential treatment options of this. The patient is currently on hospice, is no longer undergoing treatment for her stage IV lung cancer. Different treatment options I have discussed is the need for vascular surgery, potentially Interventional Radiology for potential embolectomy versus catheter directed tPA. The patient reports that she does not wish to have any invasive procedures performed. She understands that she may potentially lose her legs and this may cause her . I have discussed potential admission to the hospital for IV heparin as well as further assistance with activities of daily living. The patient does not wish to be admitted to the hospital. She would like to go back to [facility]. We have discussed using anticoagulant. I have contacted Dr. Becker, the patient's primary care doctor. We will place the patient on subcutaneous Lovenox. Her prescription is written for this. We have also PATIENT'S NAME: ALEXIS SULTANA [facility] AGE: 66 Y [address] ROOM: [place] [address] LOCATION: [facility] ADMIT DATE: 07/23/2016 ER/Outpatient Report DISCHARGE DATE: 07/23/2016 FAMILY PHYSICIAN: Jolynn Vaughn MD ATTENDING PHYSICIAN: Toro Amado written discharge instructions back to the assisted care facility. We have contacted both [facility] with the Hospice Service as well as [facility] to update on the plan of care. I have discussed to follow up with Dr. Becker on Monday for re-evaluation. I have discussed return to care instructions including worsening symptoms or any other concerns to return to the emergency department as soon as possible. The patient is agreeable and Tessa, friend is agreeable. They are without further questions at this time. DISPOSITION: The patient was discharged to [facility] in stable condition under hospice. DO ANGY YIN/carlos enriquel /[id number] d: 07/23/16 1514 t: 07/27/16 0634, OUTPATIENT REPORT
[2016-07-23 05:36] LABS: HEMATOCRIT 44.5 % (33.0-46.0); HEMOGLOBIN 14.4 g/dL (10.0-15.0); MCH 32.4 pg (27.0-34.0); MCHC 32.4 gm/dL (32.0-36.5); MCV 100.2 fl (83.0-98.0); MPV 9.9 fl (9.4-12.4); PLATELET COUNT 200 K/uL (150-450); RBC 4.44 M/uL (3.50-5.50); RDW-CV 13.8 % (11.9-14.6); WBC 14.4 K/uL (4.0-11.0)
[2016-07-23 05:47] LABS: INR - (THERAPEUTIC) 1.02 (0.92-1.07); PROTIME 10.7 SECONDS (9.8-11.4); PTT 28 SECONDS (25-32)
[2016-07-23 06:06] LABS: ALBUMIN 2.8 gm/dL (3.5-5.0); ALK PHOS 111 IU/L (33-138); ALT 47 IU/L (12-78); ANION GAP 13.6 (10.0-19.0); AST 49 IU/L (10-40); BLOOD UREA NITROGEN 11 mg/dL (6-24); CALCIUM 8.6 mg/dL (8.5-10.5); CHLORIDE 98 mMol/L (96-110); CO2 28 mMol/L (22-32); CREATININE 0.7 mg/dL (0.5-1.1); ESTIMATED GFR (MDRD EQUATION) > 60; POTASSIUM 3.6 mMol/L (3.7-5.1); SODIUM 136 mMol/L (135-145); TOTAL PROTEIN 7.8 g/dL (6.0-8.4)
[2016-07-23 06:07] LABS: BANDED NEUTROPHIL # 0.4 K/uL (0.0-0.1); BANDED NEUTROPHILS % 3 %; LYMPHOCYTE # 0.9 K/uL (0.8-4.0); LYMPHOCYTE % 6 %; MONOCYTE # 0.1 K/uL (0.0-1.0); SEGMENTED NEUTROPHIL # 12.5 K/uL (1.8-7.8); SEGMENTED NEUTROPHIL % 87 %; TOTAL BILIRUBIN 0.3 mg/dL (0.0-1.5)
== END 2016-07-23 08:03 | disposition disaster alternative care site (69) ==
LOC: GMED 05:06
PROVIDERS: Emergency Medicine
DX: I80.201 Phlebitis and thrombophlebitis of unspecified deep vessels of right lower extremity (principal); C34.90 Malignant neoplasm of unspecified part of unspecified bronchus or lung; F32.9 Major depressive disorder, single episode, unspecified; E03.9 Hypothyroidism, unspecified; Z88.0 Allergy status to penicillin; Z87.891 Personal history of nicotine dependence
CPT/HCPCS: J1650

== ENCOUNTER → 2016-07-23 | Outpatient (CLI) | payer OTHER, MEDICARE ==
[~2016-07-23] MED LIST changes: +ATIVAN 0.5MG0.5 MG PO; +DULCOLAX10 MG R; +DURAGESIC 50MC50 MCG TOP; +DURAGESIC1 EACH TRANS; +ELIQUIS5 MG PO; +HYDROCORT 1% CR30 GM TOP; +LIDODERM1 EACH TRANS; +MILK OF MA400 MG/5 M PO; +OCEAN NASAL) (A44 ML NOSE; +REGLAN10 MG PO; +ROBITUSSIN100 MG/5 M PO; +SENNA8.6 MG PO; +TUCKS PADS TOP; +VISINE DPS)(GEN15 ML OPHTH
== END | disposition disaster alternative care site (69) ==
LOC: GAMB 04:51
DX: S89.90XA Unspecified injury of unspecified lower leg, initial encounter (principal); M25.562 Pain in left knee; R60.0 Localized edema; Z86.718 Personal history of other venous thrombosis and embolism; Z85.118 Personal history of other malignant neoplasm of bronchus and lung; Z79.52 Long term (current) use of systemic steroids; Z79.899 Other long term (current) drug therapy; Z79.891 Long term (current) use of opiate analgesic; X58.XXXD Exposure to other specified factors, subsequent encounter
CPT/HCPCS: A0425; A0429